=== PATIENT | female | born 1950 | race Caucasian/White ===

== ENCOUNTER 2021-07-21 17:33 | Emergency (ER) | payer MEDICARE, OTHER ==
[2021-07-21 18:26] LABS: PTT 23.7 sec (22.0-33.0); Prothrombin Time 10.6 sec (9.5-12.1)
[2021-07-21 18:27] LABS: #Basophils 0.1 10x3/uL (0.0-0.2); #Eosinphils 0.3 10x3/uL (0.0-0.5); #Monocytes 0.6 10x3/uL (0.0-1.1); #Neutrophils 4.4 10x3/uL (1.5-8.4); %Basophils 0.9 % (0.0-2.0); %Eosinophils 3.4 % (0.0-6.0); %Lymphocytes 37.2 % (18.0-47.0); %Monocytes 7.2 % (0.0-10.0); %Neutrophils 50.9 % (40.0-75.0); Hemoglobin 12.8 g/dL (12.0-15.5); Mean Corpuscular HGB CONC 32.1 g/dL (32.0-36.0); Mean Corpuscular Hemoglobin 28.2 pg (27.0-33.0); Mean Corpuscular Volume 87.9 fl (81.6-98.3); Mean Platelet Volume 9.9 fl (7.4-10.4); Platelet Count 272 10x3/uL (150-450); RBC Distribution Width 14.6 % (11.5-14.5); Red Blood Cell (RBC) Count 4.54 10x6/uL (3.90-5.03); White Blood Cell (WBC) Count 8.5 10x3/uL (3.5-10.5)
[2021-07-21 18:28] LABS: ALT (SGPT) 15 U/L (8-55); AST (SGOT) 21 U/L (5-34); Albumin 3.8 g/dL (3.4-4.8); Alkaline Phosphatase 129 U/L (40-110); Anion Gap 13 mmol/L (10-20); BUN (Urea Nitrogen) 20 mg/dL (9.8-20.1); Bilirubin, Total 0.3 mg/dL (0.2-1.2); Calc. Creatinine Clearance 0 mL/min (70-130); Calcium 9.8 mg/dL (7.8-10.44); Carbon Dioxide 23 mmol/L (23-31); Chloride 107 mmol/L (98-107); Globulin 3.6 g/dL (2.4-3.5); Glucose 128 mg/dL (80-115); Potassium 4.5 mmol/L (3.5-5.1); Protein, Total 7.4 g/dL (5.8-8.1); Sodium 138 mmol/L (136-145)
[2021-07-21] MEDS ORDERED: Ondansetron PF 4 MG/2 ML Vial ONE (18:36)
[2021-07-21] MEDS ORDERED: Morphine 4 MG/ML VIAL ONE (18:36)
== END 2021-07-21 20:02 | disposition home or self-care (01) ==
LOC: CSHERS 17:33
DX: K57.92 Diverticulitis of intestine, part unspecified, without perforation or abscess without bleeding (principal); I10 Essential (primary) hypertension; E11.9 Type 2 diabetes mellitus without complications; Z95.1 Presence of aortocoronary bypass graft
CPT/HCPCS: 36415; 74177; 80053; 82274; 85025; 85610; 85730; 86850; 86900; 86901; 96374; 96375; J2270; J2405

== ENCOUNTER 2021-09-01 14:35 | Inpatient (IN) | payer MEDICARE ==
[2021-09-01 16:00] LABS: #Basophils 0.1 10x3/uL (0.0-0.2); #Eosinphils 0.2 10x3/uL (0.0-0.5); #Monocytes 0.6 10x3/uL (0.0-1.1); #Neutrophils 3.7 10x3/uL (1.5-8.4); %Eosinophils 3.1 % (0.0-6.0); %Lymphocytes 34.5 % (18.0-47.0); %Monocytes 8.5 % (0.0-10.0); %Neutrophils 52.6 % (40.0-75.0); Hemoglobin 12.5 g/dL (12.0-15.5); Mean Corpuscular HGB CONC 32.2 g/dL (32.0-36.0); Mean Corpuscular Hemoglobin 28.4 pg (27.0-33.0); Mean Corpuscular Volume 88.2 fl (81.6-98.3); Mean Platelet Volume 10.2 fl (7.4-10.4); Platelet Count 256 10x3/uL (150-450); RBC Distribution Width 13.7 % (11.5-14.5)
[2021-09-01 16:03] LABS: ALT (SGPT) 15 U/L (8-55); AST (SGOT) 18 U/L (5-34); Albumin 3.8 g/dL (3.4-4.8); Alkaline Phosphatase 135 U/L (40-110); Anion Gap 9 mmol/L (10-20); BUN (Urea Nitrogen) 20 mg/dL (9.8-20.1); Bilirubin, Total 0.3 mg/dL (0.2-1.2); Calc. Creatinine Clearance 0 mL/min (70-130); Calcium 9.6 mg/dL (7.8-10.44); Carbon Dioxide 26 mmol/L (23-31); Chloride 104 mmol/L (98-107); Globulin 3.5 g/dL (2.4-3.5); Glucose 152 mg/dL (80-115); Lipase 19 U/L (8-78); Potassium 3.9 mmol/L (3.5-5.1); Protein, Total 7.3 g/dL (5.8-8.1); Sodium 135 mmol/L (136-145)
[2021-09-01 16:54] LABS: PTT 23.6 sec (22.0-33.0); Prothrombin Time 10.6 sec (9.5-12.1)
[2021-09-01] MEDS ORDERED: Pantoprazole 40 MG VIAL ONE (16:58)
[2021-09-01] MEDS ORDERED: Ondansetron PF 4 MG/2 ML Vial ONE (16:58)
[2021-09-01 17:39] LABS: Bilirubin Neg (Negative); Blood, Urine Negative (Negative); Clarity Clear (Clear); Glucose, Urine (Dipstick) Normal (Negative); Ketone, Urine Negative (Negative); Leukocyte Negative (Negative); Nitrite Negative (Negative); Protein, Urine (Dipstick) Negative (Neg-Trace); Specific Gravity, Urine 1.025 (1.002-1.036)
[2021-09-01] MEDS ORDERED: Sodium Chloride 0.45% 1,000 ML IV SCH (20:45)
[2021-09-01] MEDS: Dextrose 5 %-0.45 % NaCl 1,000 ML IV SCH (21:45)
[2021-09-01 21:53] LABS: Hemoglobin 11.8 g/dL (12.0-15.5)
[2021-09-01] MEDS ORDERED: Potassium Chloride 20 MEQ in Premix Bag 1 BAG IVPB SCH (22:00)
[2021-09-01 22:47] VITALS: BMI 30.2
[2021-09-01] MEDS ORDERED: Acetaminophen 650 MG Suppository PR SCH (23:30)
[2021-09-01] MEDS ORDERED: hydrALAZINE 20 MG/ML VIAL SLOW IVP SCH (23:30)
[2021-09-02] MEDS ORDERED: Morphine 4 MG/ML VIAL SLOW IVP SCH (01:45)
[2021-09-02 04:34] LABS: #Basophils 0.1 10x3/uL (0.0-0.2); #Eosinphils 0.2 10x3/uL (0.0-0.5); #Monocytes 0.6 10x3/uL (0.0-1.1); #Neutrophils 4.1 10x3/uL (1.5-8.4); %Basophils 0.6 % (0.0-2.0); %Eosinophils 2.2 % (0.0-6.0); %Lymphocytes 36.7 % (18.0-47.0); %Monocytes 7.5 % (0.0-10.0); %Neutrophils 52.7 % (40.0-75.0); Hemoglobin 11.3 g/dL (12.0-15.5); Mean Corpuscular Hemoglobin 28.4 pg (27.0-33.0); Mean Corpuscular Volume 88.7 fl (81.6-98.3); Mean Platelet Volume 10.3 fl (7.4-10.4); Platelet Count 226 10x3/uL (150-450); RBC Distribution Width 13.8 % (11.5-14.5); Red Blood Cell (RBC) Count 3.98 10x6/uL (3.90-5.03); White Blood Cell (WBC) Count 7.9 10x3/uL (3.5-10.5)
[2021-09-02 04:55] LABS: Anion Gap 11 mmol/L (10-20); BUN (Urea Nitrogen) 12 mg/dL (9.8-20.1); Calc. Creatinine Clearance 84 mL/min (70-130); Calcium 9.2 mg/dL (7.8-10.44); Carbon Dioxide 24 mmol/L (23-31); Chloride 108 mmol/L (98-107); Glucose 151 mg/dL (80-115); Potassium 3.7 mmol/L (3.5-5.1); Sodium 139 mmol/L (136-145)
[2021-09-02] MEDS: Dextrose 5 %-0.45 % NaCl 1,000 ML IV SCH ×2 (08:27→17:32)
[2021-09-02] MEDS: Pantoprazole 40 MG VIAL IVP SCH ×2 (08:27→20:51)
[2021-09-02] MEDS ORDERED: Morphine 4 MG/ML VIAL SLOW IVP PRN (11:16)
[2021-09-02] MEDS: Acetaminophen 325 MG TAB PO PRN ×2 (12:52→19:40)
[2021-09-02 17:37] LABS: SARS-CoV-2 PCR by NAA Not Detected (NotDetected)
[2021-09-03] MEDS: Dextrose 5 %-0.45 % NaCl 1,000 ML IV SCH ×3 (03:24→23:42)
[2021-09-03 08:16] LABS: Hemoglobin 11.1 g/dL (12.0-15.5); Mean Corpuscular HGB CONC 32.6 g/dL (32.0-36.0); Mean Corpuscular Hemoglobin 28.6 pg (27.0-33.0); Mean Corpuscular Volume 87.9 fl (81.6-98.3); Platelet Count 228 10x3/uL (150-450); RBC Distribution Width 13.7 % (11.5-14.5); Red Blood Cell (RBC) Count 3.88 10x6/uL (3.90-5.03)
[2021-09-03 08:38] LABS: Eosinophils 3 % (0-10); Lymphocytes 55 % (21-51); Monocytes 11 % (0-10); Neutrophil 28 % (42-75)
[2021-09-03 08:41] LABS: MDiff Complete? YES; Platelet Morphology Comment Appears Adequate; RBC Morphology Normal
[2021-09-03] MEDS: Acetaminophen 325 MG TAB PO PRN (10:09)
[2021-09-03] MEDS: Pantoprazole 40 MG VIAL IVP SCH ×2 (10:09→20:46)
[2021-09-03] MEDS ORDERED: Ondansetron ORAL SOLN. 4 MG/5 ML UDCUP PO PRN (15:44)
[2021-09-04] MEDS: Acetaminophen 325 MG TAB PO PRN (00:17)
[2021-09-04 05:32] LABS: Hemoglobin 11.8 g/dL (12.0-15.5); Mean Corpuscular HGB CONC 32.3 g/dL (32.0-36.0); Mean Corpuscular Hemoglobin 28.4 pg (27.0-33.0); Mean Platelet Volume 9.8 fl (7.4-10.4); Platelet Count 244 10x3/uL (150-450); RBC Distribution Width 13.6 % (11.5-14.5); Red Blood Cell (RBC) Count 4.15 10x6/uL (3.90-5.03); White Blood Cell (WBC) Count 7.9 10x3/uL (3.5-10.5)
[2021-09-04 06:09] LABS: MDiff Complete? YES; Platelet Morphology Comment Appears Adequate; RBC Morphology Normal
[2021-09-04 06:14] LABS: Eosinophils 2 % (0-10); Lymphocytes 61 % (21-51); Monocytes 2 % (0-10); Neutrophil 33 % (42-75)
[2021-09-04 06:17] LABS: Reflex for Review?? YES
[2021-09-04 07:46] VITALS: BP 163/79; TEMP 97.1
[2021-09-04] MEDS: Pantoprazole 40 MG VIAL IVP SCH (08:52)
[2021-09-04] MEDS: Dextrose 5 %-0.45 % NaCl 1,000 ML IV SCH (08:53)
[2021-09-04 17:46] LABS: ANA Symphony (Qualitative) Negative (Negative); ANA Symphony (Quantitative) 0.6 Ratio (< 0.7 Negative); dsDNA IgG Antibody 0.8 IU/mL (<10 Negative)
[2021-09-09 18:09] LABS: Routine O & P Final report (.)
== END 2021-09-04 10:35 | disposition home or self-care (01) | DRG 379 ==
LOC: CSHERS 14:35 → OBSVTOIN 20:18 → CSHTELE 20:18
PROVIDERS: ADMIT Family Medicine; ATTEND Physician Assistant
DX: K92.2 Gastrointestinal hemorrhage, unspecified (principal); K52.9 Noninfective gastroenteritis and colitis, unspecified; I10 Essential (primary) hypertension; E78.5 Hyperlipidemia, unspecified; K21.9 Gastro-esophageal reflux disease without esophagitis; E11.9 Type 2 diabetes mellitus without complications; Z20.822 Contact with and (suspected) exposure to COVID-19; E66.3 Overweight; Z79.899 Other long term (current) drug therapy; Z98.84 Bariatric surgery status; Z90.49 Acquired absence of other specified parts of digestive tract; Z88.5 Allergy status to narcotic agent; Z68.30 Body mass index [BMI] 30.0-30.9, adult; Z90.710 Acquired absence of both cervix and uterus
CPT/HCPCS: 36415; 36416; 74174; 80048; 80053; 81003; 82274; 83605; 83630; 83690; 83735; 84484; 85025; 85060; 85610; 85652; 85730; 86038; 86140; 86225; 87177; 87324; 87449; 93005; 96374; 96375; C9113; J0360; J2270; J2405; J3480; J7042; Q0162; U0003; U0005

== ENCOUNTER 2022-02-24 10:39 | Outpatient (CLI) | payer MEDICARE, OTHER | END 2022-02-24 10:40 | disposition home or self-care (01) | LOC: CSHMRI 10:39 | PROVIDERS: ATTEND Family Medicine | DX: R20.2 Paresthesia of skin (principal); M47.812 Spondylosis without myelopathy or radiculopathy, cervical region | CPT/HCPCS: 72141 ==